=== PATIENT | male | born 1970 | race Asian ===

== ENCOUNTER 2018-03-30 07:28 | Emergency (ER) | payer BC ==
[~2018-03-30] VITALS: Ht 172.7 cm; Wt 85.2 kg
[2018-03-30 07:37] VITALS: BP 113/72
[2018-03-30] MEDS ORDERED: METHOCARBAMOL 750 MG TABLET ONE (07:54)
[2018-03-30] MEDS ORDERED: KETOROLAC 30 MG/1 ML ONE (07:54)
[2018-03-30] MEDS ORDERED: KETOROLAC 30 MG/1 ML IM ONE (08:00)
[2018-03-30] MEDS ORDERED: METHOCARBAMOL 750 MG TABLET PO ONE (08:00)
== END 2018-03-30 09:13 | disposition home or self-care (01) ==
LOC: ED 09:07
DX: M46.1 Sacroiliitis, not elsewhere classified (principal)
CPT/HCPCS: 72110; 96372; 99284; J1885

== ENCOUNTER 2018-05-06 18:36 | Emergency (ER) | payer BC, OTHER ==
[~2018-05-06] VITALS: Ht 172.7 cm; Wt 90.0 kg
[2018-05-06 19:00] VITALS: BP 135/93
[2018-05-06] MEDS ORDERED: HYDROcodone/APAP 5/325 TABLET PO STA (19:55)
[2018-05-06] MEDS ORDERED: DIAZEPAM 5 MG TABLET ONE (19:56)
[2018-05-06] MEDS ORDERED: HYDROcodone/APAP 5/325 TABLET ONE (19:56)
[2018-05-06] MEDS ORDERED: DIAZEPAM 5 MG TABLET PO ONE (20:00)
[2018-05-06] MEDS ORDERED: HYDROcodone/APAP 5/325 TABLET PO ONE (21:00)
== END 2018-05-06 20:47 | disposition home or self-care (01) ==
LOC: ED 20:05
DX: M54.42 Lumbago with sciatica, left side (principal)
CPT/HCPCS: 82962; 99283